=== PATIENT | female | born 1940 | race Caucasian/White ===

== ENCOUNTER → 2016-09-24 | Outpatient (CLI) | payer MEDICARE | END | disposition home or self-care (01) | LOC: RAD.S 09-18 14:30 | DX: R92.8 Other abnormal and inconclusive findings on diagnostic imaging of breast (principal); Q83.9 Congenital malformation of breast, unspecified; N64.89 Other specified disorders of breast ==

== ENCOUNTER → 2016-09-25 | Outpatient (CLI) | payer MEDICARE | END | disposition home or self-care (01) | LOC: RAD.S 14:10 | DX: R92.8 Other abnormal and inconclusive findings on diagnostic imaging of breast (principal); R92.2 Inconclusive mammogram ==